=== PATIENT | female | born 1945 | race Caucasian/White ===

== ENCOUNTER 2018-01-07 17:45 | Inpatient (IN) | payer MEDICAID, MEDICARE ==
[2018-01-07] MEDS ORDERED: IBUPROFEN 400 MG TABLET PO ONE (18:08)
[2018-01-07] MEDS ORDERED: NORMAL SALINE 1,000 ML IV ONE (18:08)
[2018-01-07] MEDS ORDERED: IBUPROFEN 100 MG/5 ML BTL PO ONE (18:30)
[2018-01-07 18:31] LABS: Hematocrit 33.4 % (37.0-47.0); Hemoglobin 10.7 gm/dL (12.5-16.0); Mean Cell Volume 89.8 fl (78-100); Mean Corpuscular Hemoglobin 28.8 pg (27-31); Mean Platelet Volume 10.2 fl (8-12.5); Platelet Count 115 K/mm3 (150-450); Red Blood Count 3.72 M/mm3 (4.2-5.4); Red Cell Distribution Width 15.1 % (11.5-14.0); White Blood Count 6.8 K/mm3 (4.0-10.5)
[2018-01-07 18:42] LABS: Urine Amorphous Sediment Few - 1+ (NONE-FEW); Urine Appearance Clear (CLEAR); Urine Bacteria 1+; Urine Bilirubin Negative (NEGATIVE); Urine Blood 50 /ul (NEGATIVE); Urine Color Yellow; Urine Ketone Negative (NEGATIVE); Urine Mucus Few - 1+; Urine Nitrite Negative (NEGATIVE); Urine Protein 30 mg/dL (NEGATIVE); Urine RBC TRACE /hpf (0-5); Urine Urobilinogen Normal (NORMAL); Urine WBC TRACE /hpf (0-5)
[2018-01-07 18:48] LABS: Albumin * 0.9 gm/dl (3.4-5.0); Anion Gap 7.3 mmol/L (6.8-13.8); BUN/Creatinine Ratio 16.4 (9.0-21.6); Bilirubin, Total 0.4 mg/dL (0.0-1.1); Ca. Corrected For Albumin 9.6 mg/dL (8.4-10.2); Calcium * 7.4 mg/dL (7.9-10.9); Carbon Dioxide 31.9 mmol/L (24-32.6); Magnesium 1.7 mg/dL (1.2-2.8); Potassium 3.2 mmol/L (3.4-4.6); Total Protein 4.9 gm/dL (6.2-8.2)
[2018-01-07 18:58] LABS: Total Cells Counted 100
[2018-01-07 19:02] LABS: Atypical (Reactive) Lymph 1 % (0-2); Band 11 % (0-2.0); Lymphocyte 10 % (20-51); Monocyte 8 % (0-9); Neutrophil 70 % (42-75); Neutrophil # 4.8 K/mm3 (1.3-6.0); Platelet Estimate Decreased (NORMAL)
[2018-01-07 19:03] LABS: Dohle Bodies Trace; Hypochromia Trace; Toxic Granulation Trace
--- NOTE | 2018-01-07 19:24 | ERNOTE ---
Medical Problem HPI - General Chief Complaint: Fever Time Seen by Provider: 01/07/18 17:48 Source: patient, EMS, [facility] records Exam Limitations: other - Patient has cerebral palsy but she appears to be fairly reasonable historian. - Immun/Allergies/Home Medications Allergies/Adverse Reactions: Allergies No Known Allergies Allergy (Unverified 07/05/15 14:09) Home Medications: HOME MEDICATIONS Aspirin [Aspirin Enteric Coated] 81 mg PO DAILY 07/05/15 [Last Taken 07/05/15] Docusate Sodium [Colace] 100 mg PO DAILY 10/16/15 [Last Taken Unknown] Amox Tr/Potassium Clavulanate [Augmentin 875-125 Tablet] 875 mg PO Q12H #20 tab 09/03/17 [Last Taken Unknown] Albuterol Sulfate [Albuterol Sulfate 2.5 MG/0.5ML] 1 vial IH Q6H 01/07/18 [Last Taken Unknown] - History of Present History Narrative: [facility] and her hands are starting to swell. Patient however has no complaint of any kind other than she feels warm. Timing: getting worse Severity: moderate Review of Systems - Review of Systems Constitutional: Present: See HPI EYE: Present: no symptoms reported ENT: Present: no symptoms reported Respiratory: Present: no symptoms reported Cardiology: Present: edema Gastrointestinal/Abdominal: Present: no symptoms reported Genitourinary: Present: no symptoms reported Musculoskeletal: Present: no symptoms reported Skin: Present: no symptoms reported Neurological: Present: no symptoms reported Endocrine: Present: no symptoms reported Hematologic/Lymphatic: Present: no symptoms reported Psych: Present: no symptoms reported Medical History (Last Updated 01/07/18 @ 18:49 by Raheem Yang RN) Anemia Anorexia Cerebral palsy Hx of fall Hypokalemia Muscle weakness Oxygen dependent Pressure ulcer Rhabdomyolysis Social History: Preferred Language Togolese Abuse History No History of abuse Psych History No pertinent hx Alcohol Use none Drug Use none No Social History Section defined Physical Exam - Physical Exam General Appearance: Present: wd/wn, alert, mild distress, other - I believe she is at her baseline of alertness Head Exam: Present: normal inspection, no evidence of injury Eye Exam: Normal inspection: bilateral, PERRL: bilateral Ears, Nose, Throat: Present: normal pharynx, dry mucous membranes Neck: Present: normal inspection, nontender Respiratory: Present: no accessory muscle use, chest nontender, rales Cardiovascular/Chest: Present: no murmur, normal peripheral pulses, tachycardia - Present in both bases Gastrointestinal/Abdominal: Present: normal bowel sounds, nontender, nondistended, soft, no organomegaly Rectal Exam: Present: deferred Pelvic Exam: Present: deferred Back Exam: Present: normal inspection, normal range of motion Extremity Exam: Present: normal inspection, non-tender, no edema, normal range of motion Neurological Exam: Present: alert, oriented, normal mood/affect Skin Exam: Present: normal color, warm/dry Lymphatic Exam: Present: no adenopathy ED Progress - Results and Orders Patient's Lab Results:: I have reviewed the patient's lab results. - Vital Signs Patient's Vital Signs:: I have reviewed the patient's vital signs. Vital Signs: Vital Signs 01/07/18 17:45 01/07/18 18:07 Temperature 39.0 C H 39.0 C H Pulse Rate 108 H 108 H Respiratory Rate 20 20 Blood Pressure 105/55 105/55 O2 Sat by Pulse Oximetry 97 97 - X-Ray X-Ray #1 X-Ray: chest Interpretation: Reviewed by me - Progress/Reassessment Chief Complaint: Fever Plan - Plan Plan: While the patient does indeed meet initial sepsis criteria, I am reluctant to give her much more IV fluids because of the low albumin. I am suspecting that she will third space fluid if we get too aggressive with our IV fluids. Patient's blood pressure improved to approximately 120/80 and her heart rate came down into the 90s and her oxygen has stabilized on her typical 4 L in the mid to upper 90s. Patient is right on the edge of being profoundly sick and I believe and she will benefit from IV antibiotics. She would also greatly benefit from a dietary consult to try to figure out how to get a protein enhanced diet for her, as she [facility] not [facility] the [facility] and has become somewhat catabolic toward her own endogenous proteins. Departure Clinical Impression: Pneumonia Qualifiers: Pneumonia type: due to unspecified organism Laterality: bilateral Lung location: lower lobe of lung Qualified Code(s): J18.1 - Lobar pneumonia, unspecified organism Sepsis Qualifiers: Sepsis type: sepsis due to unspecified organism Qualified Code(s): A41.9 - Sepsis, unspecified organism - Departure Disposition: Still a patient Condition: Fair Referrals: Clarke Stiles DO [Primary Care Provider] - Critical Care Note - Critical Care Note Total Time (mins): 40 Comments: Patient meets sepsis criteria currently and she was given a liter of normal saline over 2 hours which stabilized her blood pressure and brought her heart rate down. [facility] been a [facility] for the last week and is not been eating because she says the food is "gross". Patient will be admitted for 2 antibiotics and we need to figure out a better dietary regimen for her as her albumin is plummeting because of a self-induced starvation diet due to food that tastes terrible to the patient.
[2018-01-07 19:33] LABS: CRP 32.5 mg/dL (0.0-0.9)
[2018-01-07] MEDS ORDERED: ACETAMINOPHEN 325 MG TABLET PO PRN (19:58)
[2018-01-07] MEDS ORDERED: traMADol HCL 50 MG TABLET PO PRN (19:58)
[2018-01-07] MEDS ORDERED: ALBUTEROL SULFATE 2.5 MG/0.5 ML VIAL.NEB IH SCH (20:00)
[2018-01-07 20:21] LABS: Prothrombin Time (Patient) 10.1 Seconds (9.0-11.0)
[2018-01-07] MEDS: ALBUTEROL SULFATE 2.5 MG/0.5 ML VIAL.NEB IH SCH (20:24)
[2018-01-07 20:42] LABS: INR 1.01 INR (0.90-1.10)
[2018-01-07] MEDS ORDERED: DOXYCYCLINE HYCLATE 100 MG TABLET PO SCH (21:00)
[2018-01-08] MEDS: ALBUTEROL SULFATE 2.5 MG/0.5 ML VIAL.NEB IH SCH (00:18)
[2018-01-08] MEDS ORDERED: NORMAL SALINE 250 ML IV ONE ×2 (03:35)
[2018-01-08] MEDS ORDERED: NOREPINEPHRINE BITARTRATE 4 MG in DEXTROSE 5 % IN WATER 496 ML IV PRN ×2 (04:16)
--- NOTE | 2018-01-08 04:56 | HP ---
Chief Complaint - Chief Complaint Date of Service: 01/08/18 Time of Service: 04:00 Chief Complaint: fever History of Present Illness: Patient with a history of cerebral palsy presents from the [facility] with a fever. She spent a few days in [place] after being found down, and has several skin wounds as a result. She spent approximately a week at [facility]. She hadn't been eating there because she didn't like the food. In the ED, she was diagnosed with a pneumonia and given fluids. Her WBC is not elevated at 6.8, lactate normal at 0.3, procalcitonin elevated to 7.86. CXR showed pneumonia. Her BP was 105-120's/55-74. Tachycardia resolved after 1 L fluids, and fever subsided. She was given Rocephin and started on doxycycline. After arriving to the floor, her BP decreased to 80's/50's. She was given an additional 250 cc bolus of NS, and developed increased peripheral edema without improvement in her BP. The decision was made to transfer, and she was accepted at [facility]. Levophed was started. Medical History (Last Reviewed 01/07/18 @ 21:16 by Megan Leyva RN) Anemia Anorexia Cerebral palsy Hx of fall Hypokalemia Muscle weakness Oxygen dependent Pressure ulcer Rhabdomyolysis Surgical History: Surgical History (Last Updated 01/07/18 @ 21:17 by Megan Leyva RN) History of appendectomy History of section History of cholecystectomy Family History: Family History (Last Reviewed 01/07/18 @ 21:18 by Megan Leyva RN) Other No pertinent family history Social History: Patient Lives/Resources [facility] Utilized Occupation Disabled Preferred Language Bhutanese Do you have any presybeterian or No cultural preference? Smoking Status Former smoker Have you smoked in the past 12 No months Do you dip or chew tobacco No Abuse History No History of abuse Psych History No pertinent hx Alcohol Use none Drug Use none No Social History Section defined Review Of Systems (GEN) - Review of Systems Generalized/Overall Review: Present: Fever, Fatigue Respiratory: Absent: Cough Cardiac: Present: Edema. Absent: Chest Pain Abdominal: Absent: Vomiting, Diarrhea Skin: Present: Lesions Allergies/Adverse Reactions: Allergies Allergy/AdvReac Type Severity Reaction Status Date / Time No Known Allergies Allergy Unverified 07/05/15 14:09 Home Medications: HOME MEDICATIONS Acetaminophen 325 mg PO Q4H PRN 01/07/18 [Last Taken Unknown] Albuterol Sulfate [Albuterol Sulfate 2.5 MG/0.5ML] 1 vial IH Q6H 01/07/18 [Last Taken Unknown] Cephalexin [Keflex] 500 mg PO TID 01/07/18 [Last Taken Unknown] traMADol HCL [Ultram] 50 mg PO QID PRN 01/07/18 [Last Taken Unknown] Exam - Exam Vital Signs: Vital Signs - Last Taken Temp 36.5 C 01/08/18 02:34 Pulse 99 01/08/18 02:34 Resp 16 01/08/18 02:34 BP 88/51 L 01/08/18 03:49 Pulse Ox 96 01/08/18 02:34 Constitutional: Present: Alert - appears ill, Thin and frail, Looks Older than stated age ENT Exam: Present: dry mucous membranes Respiratory: Present: no respiratory distress. Absent: rhonchi, wheezing Cardiovascular/Chest: Present: tachycardia, systolic murmur Abdomen: Present: Normal bowel sounds, soft, nontender Extremity: Present: lower extremity edema - 1+ edema to her bilateral legs, 2+ in her bilateral hands., other - feet in extension Skin Exam: Present: other - multiple bandages over leg wounds Neurologic: Present: other - difficult to understand speech Eye contact: Present: cooperative Diagnostic Studies: Abnormal Lab Results 01/07/18 01/07/18 01/07/18 Range/Units 18:25 18:25 18:25 RBC 3.72 L (4.2-5.4) M/mm3 Hgb 10.7 L (12.5-16.0) gm/dL Hct 33.4 L (37.0-47.0) % RDW 15.1 H (11.5-14.0) % Plt Count 115 L (150-450) K/mm3 Band Neuts % (Manual) 11 H (0-2.0) % Lymphocytes % (Manual) 10 L (20-51) % Lymphocytes # (Manual) 0.7 L (1.5-3.5) k/mm3 Platelet Estimate Decreased L (NORMAL) Potassium 3.2 L (3.4-4.6) mmol/L Lactic Acid, Venous 0.3 L (0.4-2.0) mmol/L Calcium 7.4 L (7.9-10.9) mg/dL ALT 13 L (19-67) U/L Alkaline Phosphatase 269 H (50-170) U/L C-Reactive Prot, Quant 32.5 H (0.0-0.9) mg/dL Total Protein 4.9 L (6.2-8.2) gm/dL Albumin 0.9 L (3.4-5.0) gm/dl Procalcitonin (0.05-0.50) ng/mL Urine Protein (NEGATIVE) mg/dL Urine Blood (NEGATIVE) /ul Urine WBC (0-5) /hpf Urine Bacteria (NONE) Urine Mucus (NONE) Ur Random Creatinine (60-200) mg/dL 01/07/18 01/07/18 01/07/18 Range/Units 18:25 18:30 20:11 RBC (4.2-5.4) M/mm3 Hgb (12.5-16.0) gm/dL Hct (37.0-47.0) % RDW (11.5-14.0) % Plt Count (150-450) K/mm3 Band Neuts % (Manual) (0-2.0) % Lymphocytes % (Manual) (20-51) % Lymphocytes # (Manual) (1.5-3.5) k/mm3 Platelet Estimate (NORMAL) Potassium (3.4-4.6) mmol/L Lactic Acid, Venous (0.4-2.0) mmol/L Calcium (7.9-10.9) mg/dL ALT (19-67) U/L Alkaline Phosphatase (50-170) U/L C-Reactive Prot, Quant (0.0-0.9) mg/dL Total Protein (6.2-8.2) gm/dL Albumin (3.4-5.0) gm/dl Procalcitonin 7.86 H (0.05-0.50) ng/mL Urine Protein 30 H (NEGATIVE) mg/dL Urine Blood 50 H (NEGATIVE) /ul Urine WBC Trace H (0-5) /hpf Urine Bacteria 1+ H (NONE) Urine Mucus Few - 1+ H (NONE) Ur Random Creatinine 31.6 L (60-200) mg/dL Laboratory Results WBC 6.8 K/mm3 (4.0-10.5) 01/07/18 18:25 RBC 3.72 M/mm3 (4.2-5.4) L 01/07/18 18:25 Hgb 10.7 gm/dL (12.5-16.0) L 01/07/18 18: Hct 33.4 % (37.0-47.0) L 01/07/18 18: MCV 89.8 fl (78-100) 01/07/18 18: MCH 28.8 pg (27-31) 01/07/18 18: MCHC 32.0 g/dl (32-36) 01/07/18 18: RDW 15.1 % (11.5-14.0) H 01/07/18 18: Plt Count 115 K/mm3 (150-450) L 01/07/18: MPV 10.2 fl (8-12.5) 01/07/18 18:25 Neutrophils % (Manual) 70 % (42-75) 01/07/18 18: Band Neuts % (Manual) 11 % (0-2.0) H 01/07/18 18:25 Lymphocytes % (Manual) 10 % (20-51) L 01/07/18 18:25 Monocytes % (Manual) 8 % (0-9) 01/07/18 18: Neutrophils # (Manual) 4.8 K/mm3 (1.3-6.0) 01/07/18 18:25 Lymphocytes # (Manual) 0.7 k/mm3 (1.5-3.5) L 01/07/18 18: Monocytes # (Manual) 0.5 k/mm3 (0.0-1.0) 01/07/18 18:25 Atypic/Reactive Lymphs 1 % (0-2) 01/07/18 18: Toxic Granulation Trace 01/07/18 18: Toxic Vacuolation Trace 01/07/18 18:25 Dohle Bodies Trace 01/07/18 18:25 Platelet Estimate Decreased (NORMAL) L 01/07/18 18:25 Hypochromasia Trace 01/07/18 18: PT 10.1 Seconds (9.0-11.0) 01/07/18 20:01 INR (Anticoag Therapy) 1.01 INR (0.90-1.10) 01/07/18 20:01 Sodium 140 mmol/L (132-142) 01/07/18 18:25 Plasma Sodium 140 mmol/L (130-142) 01/07/18 18:25 Potassium 3.2 mmol/L (3.4-4.6) L 01/07/18 18:25 Chloride 104 mmol/L (97-106) 01/07/18 18:25 Carbon Dioxide 31.9 mmol/L (24-32.6) 01/07/18 18:25 Anion Gap 7.3 mmol/L (6.8-13.8) 01/07/18 18:25 BUN 10 mg/dL (3-23) 01/07/18 18:25 Creatinine 0.61 mg/dL (0.4-1.4) 01/07/18 18:25 Est GFR (Non-Af Amer) 102 mL/min (60-130) 01/07/18 18:25 BUN/Creatinine Ratio 16.4 (9.0-21.6) 01/07/18 18:25 Random Glucose 90 mg/dL (70-110) 01/07/18 18:25 Lactic Acid, Venous 0.3 mmol/L (0.4-2.0) L 01/07/18 18:25 Calcium 7.4 mg/dL (7.9-10.9) L 01/07/18 18:25 Calcium Adj for Albumin 9.6 mg/dL (8.4-10.2) 01/07/18 18:25 Magnesium 1.7 mg/dL (1.2-2.8) 01/07/18 18:25 Total Bilirubin 0.4 mg/dL (0.0-1.1) 01/07/18 18:25 AST 28 U/L (0-48) 01/07/18 18:25 ALT 13 U/L (19-67) L 01/07/18 18:25 Alkaline Phosphatase 269 U/L (50-170) H 01/07/18 18:25 C-Reactive Prot, Quant 32.5 mg/dL (0.0-0.9) H 01/07/18 18:25 Total Protein 4.9 gm/dL (6.2-8.2) L 01/07/18 18:25 Albumin 0.9 gm/dl (3.4-5.0) L 01/07/18 18:25 Procalcitonin 7.86 ng/mL (0.05-0.50) H 01/07/18 18:25 Urine Color Yellow 01/07/18 18:30 Urine Appearance Clear (CLEAR) 01/07/18 18:30 Urine pH 7.0 pH (5.0-7.0) 01/07/18 18:30 Ur Specific [place] 1.020 SP.GR. (1.005-1.010) 01/07/18 18:30 Urine Protein 30 mg/dL (NEGATIVE) H 01/07/18 18:30 Urine Glucose (UA) Negative mg/dL (NEGATIVE) 01/07/18 18:30 Urine Ketones Negative mg/dL (NEGATIVE) 01/07/18 18:30 Urine Blood 50 /ul (NEGATIVE) H 01/07/18 18:30 Urine Nitrate Negative (NEGATIVE) 01/07/18 18:30 Urine Bilirubin Negative mg/dl (NEGATIVE) 01/07/18 18:30 Prot Sulfosalicylic Acd 1+ mg/dL (0) 01/07/18 18:30 Urine Urobilinogen Normal EU/dl (NORMAL) 01/07/18 18:30 Ur Leukocyte Esterase Negative /ul (NEGATIVE) 01/07/18 18:30 Urine RBC Trace /hpf (0-5) 01/07/18 18:30 Urine WBC Trace /hpf (0-5) H 01/07/18 18:30 Ur Epithelial Cells Trace /hpf (0-5) 01/07/18 18:30 Amorphous Sediment Few - 1+ (NONE-FEW) 01/07/18 18:30 Urine Bacteria 1+ (NONE) H 01/07/18 18:30 Urine Mucus Few - 1+ (NONE) H 01/07/18 18:30 Urine Culture Comments Culture to follow 01/07/18 18:30 Ur Random Creatinine 31.6 mg/dL (60-200) L 01/07/18 20:11 Influenza Type A Ag Negative (NEGATIVE) 01/07/18 18:46 Influenza Type B Ag Negative (NEGATIVE) 01/07/18 18:46 Mycoplasma pneumon IgM Non reactive (NonReactive) 01/07/18 18:55 Group A Strep Rapid Negative (NEGATIVE) 01/07/18 18:41 Assessment/Plan - Assessment/Plan (1) Hypotension Assessment: Patient not responding to fluids, and is starting to third space, likely secondary to her severe hypoalbuminemia. Will start levophed and transfer to ICU at [facility]. She was initially tachycardic, which improved, but is developing again. She has a pneumonia on xray, but is not coughing, no chest pain, and is oxygenating well. WBC not elevated at 6.8, and lactate not elevated at 0.3. Urine negative for nitrite and leuk esterase, 1+ bacteria, culture pending. Problem: Acute (2) Hypoalbuminemia Assessment: She reports not eating for several days at [place] because the food was "gross," which is possible source. Given her WBC of 6.8 and nonelevated lactate, this does not seem to be an inflammatory response. Her platelets, INR, AST, ALT are largely within normal limits, so she does not appear to have liver disease. She has protein in her urine. With her peripheral edema, nephrotic syndrome possible. Problem: Acute (3) Cerebral palsy Problem: Chronic (4) Pneumonia Assessment: PNA seen on CXR, but she denies cough, SOB, or chest pain. WBC not elevated, lactate normal at 0.3. She had a fever on presentation, which has not been present for approximately 6 hours. She is oxygenating at her baseline 4L O2 via NC. Can not aggressively fluid resuscitate her, as she is developing worsening edema overnight. Rocephin has been started, and will continue. Problem: Acute Qualifiers: Pneumonia type: due to unspecified organism Laterality: bilateral Lung location: lower lobe of lung Qualified Code(s): J18.1 - Lobar pneumonia, unspecified organism (5) Ulcer of right foot limited to breakdown of skin Assessment: Doxycycline has been started. Hx of cerebral palsy. She was seen in our wound clinic several months ago for wounds. Problem: Chronic
--- NOTE | 2018-01-08 05:45 | DS ---
Transfer Discharge Summary - Diagnosis(s)/Problems (1) Hypotension Narrative: Patient's BP in the ED was 120's/70's, but after arriving to the med/surg floor, her BP decreased to 80's/40's. She was given 1.25 L of NS, without improvement in her BP, and she developed more peripheral edema. It was felt to be due to her severe hypoalbuminemia, as her albumin was 0.9. CXR showed pneumonia, but she denied cough or SOB. No nitrites or leuk esterase on UA. The decision was made to transfer to a facility with an ICU, and she was accepted at [facility]. Levophed was started for hypotension. Problem: Acute (2) Hypoalbuminemia Narrative: Albumin on arrival was 0.9. She has spent several days at the [facility] after hospitalization in [place], possibly for rhabdomyolysis. She was found down, and had reportedly been there for several days. She did not like the food in [facility], and hasn't been eating. INR, platelets, AST, ALT essentially within normal limits. With the hypoalbuminemia, peripheral edema, and protein in her urine, she likely has nephrotic syndrome. Problem: Acute (3) Cerebral palsy Narrative: Does not ambulate at baseline. Decreased mobility contributed to diagnoses. Problem: Chronic (4) Pneumonia Narrative: Patient developed fever at the [facility]. CXR positive for pneumonia, and she was started on Rocephin. Initial temp of 39.0 on presentation to the ED, which improved within an hour. She was oxygenating on her home 4 L O2 via [place]. She was initially tachycardic in the low 100's, which improved temporarily, but redeveloped when her BP decreased. BP initially 110's and 120's over 50's to 70's, but decreased to 80's over 40's overnight, and did not respond to fluids, so levophed was started, and she was transferred. Problem: Acute (5) Ulcer of right foot limited to breakdown of skin Narrative: Patient reportedly was found down after being there for several days, approximately 10 days ago. Chart review shows she had been seen over the summer in our wound care clinic, so these wounds are a chronic problem. Nutrition will need to improve for her wounds to heal. Doxycycline was started. Problem: Chronic - Course Description of Stay: Patient admitted for fever from [facility]. She has a PMHx of cerebral palsy, and had a recent hospitalization after being found down. She had pneumonia on her CXR, and several skin wounds. Rocephin and doxy were started. WBC, lactate not elevated, but prolactin of 7.86 and albumin of 0.9. After being admitted to the floor, her BP decreased, and did not respond to fluids. She was given a total of 1.5 L NS, and developed peripheral edema. Levophed was started, and she was transferred to [facility] for CV monitoring and resuscitation. Procedures Performed: none - Results and Findings Results and Findings: Laboratory Results - last 24 hr 01/07/18 01/07/18 01/07/18 18:25 18:25 18:25 WBC 6.8 RBC 3.72 L Hgb 10.7 L Hct 33.4 L MCV 89.8 MCH 28.8 MCHC 32.0 RDW 15.1 H Plt Count 115 L MPV 10.2 Neutrophils % (Manual) 70 Band Neuts % (Manual) 11 H Lymphocytes % (Manual) 10 L Monocytes % (Manual) 8 Neutrophils # (Manual) 4.8 Lymphocytes # (Manual) 0.7 L Monocytes # (Manual) 0.5 Atypic/Reactive Lymphs 1 Toxic Granulation Trace Toxic Vacuolation Trace Dohle Bodies Trace Platelet Estimate Decreased L Hypochromasia Trace PT INR (Anticoag Therapy) Sodium 140 Plasma Sodium 140 Potassium 3.2 L Chloride 104 Carbon Dioxide 31.9 Anion Gap 7.3 BUN 10 Creatinine 0.61 Est GFR (Non-Af Amer) 102 BUN/Creatinine Ratio 16.4 Random Glucose 90 Lactic Acid, Venous 0.3 L Calcium 7.4 L Calcium Adj for Albumin 9.6 Magnesium 1.7 Total Bilirubin 0.4 AST 28 ALT 13 L Alkaline Phosphatase 269 H C-Reactive Prot, Quant 32.5 H Total Protein 4.9 L Albumin 0.9 L Procalcitonin Urine Color Urine Appearance Urine pH Ur Specific [place] Urine Protein Urine Glucose (UA) Urine Ketones Urine Blood Urine Nitrate Urine Bilirubin Prot Sulfosalicylic Acd Urine Urobilinogen Ur Leukocyte Esterase Urine RBC Urine WBC Ur Epithelial Cells Amorphous Sediment Urine Bacteria Urine Mucus Urine Culture Comments Ur Random Creatinine Influenza Type A Ag Influenza Type B Ag Mycoplasma pneumon IgM Group A Strep Rapid 01/07/18 01/07/18 01/07/18 18:25 18:30 18:41 WBC RBC Hgb Hct MCV MCH MCHC RDW Plt Count MPV Neutrophils % (Manual) Band Neuts % (Manual) Lymphocytes % (Manual) Monocytes % (Manual) Neutrophils # (Manual) Lymphocytes # (Manual) Monocytes # (Manual) Atypic/Reactive Lymphs Toxic Granulation Toxic Vacuolation Dohle Bodies Platelet Estimate Hypochromasia PT INR (Anticoag Therapy) Sodium Plasma Sodium Potassium Chloride Carbon Dioxide Anion Gap BUN Creatinine Est GFR (Non-Af Amer) BUN/Creatinine Ratio Random Glucose Lactic Acid, Venous Calcium Calcium Adj for Albumin Magnesium Total Bilirubin AST ALT Alkaline Phosphatase C-Reactive Prot, Quant Total Protein Albumin Procalcitonin 7.86 H Urine Color Yellow Urine Appearance Clear Urine pH 7.0 Ur Specific [place] 1.020 Urine Protein 30 H Urine Glucose (UA) Negative Urine Ketones Negative Urine Blood 50 H Urine Nitrate Negative Urine Bilirubin Negative Prot Sulfosalicylic Acd 1+ Urine Urobilinogen Normal Ur Leukocyte Esterase Negative Urine RBC Trace Urine WBC Trace H Ur Epithelial Cells Trace Amorphous Sediment Few - 1+ Urine Bacteria 1+ H Urine Mucus Few - 1+ H Urine Culture Comments Culture to follow Ur Random Creatinine Influenza Type A Ag Influenza Type B Ag Mycoplasma pneumon IgM Group A Strep Rapid Negative 01/07/18 01/07/18 01/07/18 18:46 18:55 20:01 WBC RBC Hgb Hct MCV MCH MCHC RDW Plt Count MPV Neutrophils % (Manual) Band Neuts % (Manual) Lymphocytes % (Manual) Monocytes % (Manual) Neutrophils # (Manual) Lymphocytes # (Manual) Monocytes # (Manual) Atypic/Reactive Lymphs Toxic Granulation Toxic Vacuolation Dohle Bodies Platelet Estimate Hypochromasia PT 10.1 INR (Anticoag Therapy) 1.01 Sodium Plasma Sodium Potassium Chloride Carbon Dioxide Anion Gap BUN Creatinine Est GFR (Non-Af Amer) BUN/Creatinine Ratio Random Glucose Lactic Acid, Venous Calcium Calcium Adj for Albumin Magnesium Total Bilirubin AST ALT Alkaline Phosphatase C-Reactive Prot, Quant Total Protein Albumin Procalcitonin Urine Color Urine Appearance Urine pH Ur Specific [place] Urine Protein Urine Glucose (UA) Urine Ketones Urine Blood Urine Nitrate Urine Bilirubin Prot Sulfosalicylic Acd Urine Urobilinogen Ur Leukocyte Esterase Urine RBC Urine WBC Ur Epithelial Cells Amorphous Sediment Urine Bacteria Urine Mucus Urine Culture Comments Ur Random Creatinine Influenza Type A Ag Negative Influenza Type B Ag Negative Mycoplasma pneumon IgM Non reactive Group A Strep Rapid 01/07/18 20:11 WBC RBC Hgb Hct MCV MCH MCHC RDW Plt Count MPV Neutrophils % (Manual) Band Neuts % (Manual) Lymphocytes % (Manual) Monocytes % (Manual) Neutrophils # (Manual) Lymphocytes # (Manual) Monocytes # (Manual) Atypic/Reactive Lymphs Toxic Granulation Toxic Vacuolation Dohle Bodies Platelet Estimate Hypochromasia PT INR (Anticoag Therapy) Sodium Plasma Sodium Potassium Chloride Carbon Dioxide Anion Gap BUN Creatinine Est GFR (Non-Af Amer) BUN/Creatinine Ratio Random Glucose Lactic Acid, Venous Calcium Calcium Adj for Albumin Magnesium Total Bilirubin AST ALT Alkaline Phosphatase C-Reactive Prot, Quant Total Protein Albumin Procalcitonin Urine Color Urine Appearance Urine pH Ur Specific [place] Urine Protein Urine Glucose (UA) Urine Ketones Urine Blood Urine Nitrate Urine Bilirubin Prot Sulfosalicylic Acd Urine Urobilinogen Ur Leukocyte Esterase Urine RBC Urine WBC Ur Epithelial Cells Amorphous Sediment Urine Bacteria Urine Mucus Urine Culture Comments Ur Random Creatinine 31.6 L Influenza Type A Ag Influenza Type B Ag Mycoplasma pneumon IgM Group A Strep Rapid - Medications Medications: Active Medications Albuterol Sulfate (Albuterol Sulfate 2.5 Mg/0.5ml) 2.5 mg IH Q6HRT FIGUEROA Stop: 02/06/18 20:16 Last Admin: 01/08/18 00:18 Dose: 2.5 mg Doxycycline Hyclate (Vibratab) 100 mg PO BID FIGUEROA; Protocol Stop: 01/16/18 21:01 Last Admin: 01/07/18 23:39 Dose: 100 mg Sodium Chloride (Sodium Chloride 0.9%) 250 mls @ 125 mls/hr IV .Q2H ONE Stop: 01/08/18 05:34 Last Admin: 01/08/18 03:38 Dose: 125 mls/hr Discontinued Medications Sodium Chloride (Sodium Chloride 0.9%) 1,000 mls @ 500 mls/hr IV .Q2H ONE Stop: 01/07/18 20:07 Last Infusion: 01/07/18 20:31 Dose: Infused Ceftriaxone Sodium 1,000 mg/ (Dextrose/Water) 100 mls @ 200 mls/hr IV ONCE ONE; Protocol Stop: 01/07/18 19:34 Last Infusion: 01/07/18 19:52 Dose: Infused Sodium Chloride (Sodium Chloride 0.9%) 250 mls @ 125 mls/hr IV .Q2H ONE Stop: 01/08/18 01:59 Last Infusion: 01/08/18 02:05 Dose: Infused Ibuprofen (Motrin) 800 mg PO ONCE ONE Stop: 01/07/18 18:09 Last Admin: 01/07/18 19:26 Dose: Not Given Ibuprofen (Motrin Suspension) 800 mg PO ONCE ONE Stop: 01/07/18 18:31 Last Admin: 01/07/18 18:31 Dose: 800 mg - Disposition Disposition: Short Term Hospital Inpatient Condition: Serious Discharge Date: 01/08/18 Discharge Time: 05:45
[2018-01-08 07:12] VITALS: BP 92/56
== END 2018-01-08 05:35 | disposition short-term general hospital (02) | DRG 698 ==
LOC: ER 17:45 → MS 19:32
PROVIDERS: ADMIT Family Medicine; ATTEND Family Medicine
CPT/HCPCS: 36415; 71010; 71045; 80053; 81001; 82570; 83605; 83735; 84145; 85025; 85610; 86140; 86738; 87040; 87081; 87086; 87400; 87430; 87449; 93005; 94640; 94664; 96365; 99291